=== PATIENT | female | born 1980 | race Caucasian/White ===

== ENCOUNTER 2018-07-15 19:03 | Observation (INO) ==
[2018-07-15] MEDS ORDERED: SODIUM CHLORIDE 0.9% 1,000 ML IV STA (19:36)
[2018-07-15] MEDS ORDERED: PROMETHAZINE INJ 12.5 MG in SODIUM CHLORIDE 0.9% 50 ML IV STA ×2 (19:37→21:12)
[2018-07-15 20:06] LABS: Basophils % 0.3 % (0.0-0.8); Hematocrit 41.9 VOL% (35.7-47.0); Hemoglobin 14.1 GM/DL (12.0-16.0); Immature Granulocytes % 0.4 %; Immature Granulocytes Absolute 0.04 #; Lymphocytes # 1.2 10*3/uL (1.4-4.0); Lymphocytes % 10.4 % (21.3-54.2); Mean Corpuscular HGB Conc 33.7 GM/DL (32-36); Mean Corpuscular Hemoglobin 30 PG (27-34); Mean Corpuscular Volume 88.2 FL (87-102); Mean Platelet Volume 9.4 FL (9.6-12.0); Monocytes # 0.3 10*3/uL (0.11-0.8); Monocytes % 2.5 % (1.7-12.7); Neutrophils # 9.6 10*3/uL (1.4-7.4); Neutrophils % 86.4 % (38.7-73.9); Platelet Count 289 T/CUMM (130-400); Red Blood Count 4.75 MC/CUMM (3.8-5.5); Red Cell Distribution Width 12.5 % (9.3-17.3); White Blood Count 11.1 T/CUMM (4-12)
[2018-07-15 20:25] LABS: Alanine Aminotransferase 27 U/L (13-56); Albumin 4.3 G/DL (3.4-5.0); Alkaline Phosphatase 93 U/L (45-117); Aspartate Amino Transferase 21 U/L (0-37); Bilirubin,Total < 0.39 MG/DL (0.2-1.0); Blood Urea Nitrogen 17 MG/DL (7-18); Calcium 9.8 MG/DL (8.5-10.1); Glucose 144 MG/DL (74-106); Osmolality,Calculated 294.6 MOS/KG (273-304); Sodium 146 MMOL/L (136-145); Total Protein 7.9 G/DL (6.4-8.3)
[2018-07-15 22:52] LABS: Apearance,Urine CLEAR (Clear); Bilirubin,Urine Negative (Negative); Blood, Urine Moderate mg/dL (Negative); Glucose,Urine (UA) Negative (Negative); Ketones,Urine 5 mg/dL (Negative); Mucus,Urine Occasional /LPF (Occasional); Nitrite,Urine Negative (Negative); Protein,Urine Negative; RBC,Urine 9 /HPF (0-4); Squamous Epithelial Cell,Urine Occasional /HPF (0-10); Urine Color Yellow (Yellow); Urine Specific Gravity 1.019 (1.001-1.035); Urine Urobilinogen < 2.0 EU/DL (0.2-1.0); WBC,Urine 4 /HPF (0-6)
[2018-07-15] MEDS ORDERED: ONDANSETRON 4 MG/2 ML VIAL IV ONE (23:19)
[2018-07-15] MEDS ORDERED: PANTOPRAZOLE 40 MG VIAL IV STA (23:19)
[2018-07-15] MEDS ORDERED: MORPHINE 4 MG/1 ML VIAL IV STA (23:19)
[2018-07-16] MEDS ORDERED: ACETAMINOPHEN 325 MG TABLET PO PRN (00:55)
[2018-07-16] MEDS ORDERED: NICOTINE 21 MG/24 HR PATCH TRANSDERM PRN (00:55)
[2018-07-16] MEDS ORDERED: SODIUM CHLORIDE 0.9% 1,000 ML IV STA (01:30)
[2018-07-16] MEDS: SODIUM CHLORIDE 0.9% 1,000 ML IV SCH ×6 (01:46→22:24)
[2018-07-16 03:35] LABS: Barbiturates Screen,Urine Negative (Negative); Benzodiazepines Screen,Urine Positive (Negative); Cannabinoid Screen,Urine Positive (Negative); Opiate Screen,Urine Positive (Negative); Phencyclidine Screen,Urine Negative (Negative)
[2018-07-16] MEDS: ONDANSETRON 4 MG/2 ML VIAL IV PRN ×5 (04:40→20:52)
[2018-07-16 04:47] LABS: Calcium 8.3 MG/DL (8.5-10.1); Osmolality,Calculated 292.6 MOS/KG (273-304); Potassium 3.4 MMOL/L (3.5-5.1)
[2018-07-16 04:51] LABS: Alanine Aminotransferase 21 U/L (13-56); Albumin 3.6 G/DL (3.4-5.0); Alkaline Phosphatase 77 U/L (45-117); Aspartate Amino Transferase 17 U/L (0-37); Bilirubin,Direct < 0.100 MG/DL (0.0-0.20); Bilirubin,Indirect 0.5 MG/DL (0.0-1.0); Total Protein 6.7 G/DL (6.4-8.3)
[2018-07-16 05:41] LABS: Hepatitis A Ab IgM Quant 0.12 Index; Hepatitis A Ab IgM Result Negative (Negative); Hepatitis B Core IgM Quant < 0.05 Index; Hepatitis B Core IgM Result Negative (Negative); Hepatitis B Surface Ag Quant 0.34 Index; Hepatitis B Surface Ag Result Negative (Negative); Hepatitis C Virus Ab Quant 0.11 Index; Hepatitis C Virus Ab Result Negative (Negative)
[2018-07-16] MEDS: PROMETHAZINE 25 MG/1 ML VIAL IM PRN ×4 (05:55→23:55)
[2018-07-16] MEDS: SERTRALINE 100 MG TABLET PO SCH (09:00)
[2018-07-16] MEDS: POTASSIUM CHLORIDE RIDER 10 MEQ in PREMIX 1 EACH IV SCH ×3 (11:11→17:48)
[2018-07-17] MEDS: ONDANSETRON 4 MG/2 ML VIAL IV PRN ×4 (01:19→15:02)
[2018-07-17] MEDS: SODIUM CHLORIDE 0.9% 1,000 ML IV SCH ×5 (01:29→17:00)
[2018-07-17 04:43] LABS: Basophils % 0.4 % (0.0-0.8); Hematocrit 35.3 VOL% (35.7-47.0); Hemoglobin 12.1 GM/DL (12.0-16.0); Immature Granulocytes % 2.1 %; Immature Granulocytes Absolute 0.23 #; Lymphocytes # 2.1 10*3/uL (1.4-4.0); Lymphocytes % 18.3 % (21.3-54.2); Mean Corpuscular HGB Conc 34.3 GM/DL (32-36); Mean Corpuscular Hemoglobin 30 PG (27-34); Mean Corpuscular Volume 88.7 FL (87-102); Mean Platelet Volume 9.8 FL (9.6-12.0); Monocytes # 0.8 10*3/uL (0.11-0.8); Monocytes % 7.1 % (1.7-12.7); Neutrophils # 8.1 10*3/uL (1.4-7.4); Neutrophils % 72.1 % (38.7-73.9); Platelet Count 199 T/CUMM (130-400); Red Blood Count 3.98 MC/CUMM (3.8-5.5); Red Cell Distribution Width 12.7 % (9.3-17.3); White Blood Count 11.2 T/CUMM (4-12)
[2018-07-17 05:13] LABS: Calcium 7.9 MG/DL (8.5-10.1); Potassium 3.6 MMOL/L (3.5-5.1)
[2018-07-17] MEDS: PROMETHAZINE 25 MG/1 ML VIAL IM PRN ×3 (08:06→21:10)
[2018-07-17] MEDS: SERTRALINE 100 MG TABLET PO SCH (09:42)
[2018-07-18 03:40] LABS: Basophils # 0.1 10*3/uL (0.0-0.2); Basophils % 0.7 % (0.0-0.8); Eosinophils % 0.5 % (0.00-10.9); Hematocrit 32.2 VOL% (35.7-47.0); Hemoglobin 10.8 GM/DL (12.0-16.0); Immature Granulocytes % 0.8 %; Immature Granulocytes Absolute 0.07 #; Lymphocytes % 45.3 % (21.3-54.2); Mean Corpuscular HGB Conc 33.5 GM/DL (32-36); Mean Corpuscular Hemoglobin 30 PG (27-34); Mean Corpuscular Volume 88.7 FL (87-102); Mean Platelet Volume 10.1 FL (9.6-12.0); Monocytes # 0.8 10*3/uL (0.11-0.8); Monocytes % 8.7 % (1.7-12.7); Neutrophils # 3.9 10*3/uL (1.4-7.4); Platelet Count 189 T/CUMM (130-400); Red Blood Count 3.63 MC/CUMM (3.8-5.5); Red Cell Distribution Width 12.5 % (9.3-17.3); White Blood Count 8.9 T/CUMM (4-12)
[2018-07-18 03:48] LABS: Calcium 7.6 MG/DL (8.5-10.1); Osmolality,Calculated 286.7 MOS/KG (273-304)
[2018-07-18 07:34] VITALS: BP 125/64
[2018-07-18] MEDS: SODIUM CHLORIDE 0.9% 1,000 ML IV SCH ×2 (07:34)
[2018-07-18] MEDS: SERTRALINE 100 MG TABLET PO SCH (08:52)
== END 2018-07-18 10:30 | disposition home or self-care (01) ==
LOC: N.ED 19:03 → N.EDINP 19:03 → SUATTDRO 07-16 00:55 → N.3E 07-16 01:20
PROVIDERS: ATTEND Internal Medicine